=== PATIENT | female | born 1940 | race Caucasian/White ===

== ENCOUNTER 2019-07-04 14:42 | Observation (INO) ==
[2019-07-04] MEDS ORDERED: D5% in Water 1,000 ML IVC SCH (15:00)
[2019-07-04 15:13] LABS: Basophils % 0.3 %; Eosinophils # 0.1 K/mcL (0.0-0.6); Eosinophils % 1.5 %; Hematocrit 36.1 % (35.3-44.9); Hemoglobin 11.8 g/dL (11.5-15.4); Immature Granulocytes % 0.2 % (0-4); Lymphocytes # 3.9 K/mcL (0.6-4.6); Lymphocytes % 45.2 %; Mean Corpuscular HGB Conc 32.7 g/dL (31.6-35.5); Mean Corpuscular Hemoglobin 31.8 pg (28.0-33.3); Mean Corpuscular Volume 97.3 fL (83.0-100.0); Mean Platelet Volume 13.3 fL (9.4-12.4); Monocytes # 0.7 K/mcL (0.0-1.3); Monocytes % 8.5 %; Neutrophils # 3.8 K/mcL (1.6-8.9); Platelet Count 204 K/mcL (140-400); Red Blood Count 3.71 M/mcL (3.82-4.97); Red Cell Distribution Width 13.5 % (11.5-14.5); Segmented Neutrophils % 44.3 %; White Blood Count 8.7 K/mcL (4.3-11.1)
[2019-07-04 15:56] LABS: Bilirubin,Urine Negative (Negative); Blood,Urine Trace-lysed (Negative); Clarity,Urine Clear (Clear); Color,Urine Yellow (Yellow); Glucose,Urine (UA) 250 mg/dL (Normal); Ketones,Urine Negative (Negative); Leukocyte Esterase,Urine Small (Negative); Nitrite,Urine Negative (Negative); PH,Urine 5.5 pH Units (5.0-8.0); Protein,Urine Negative (Neg-Trace); Specific Gravity,Urine 1.025 (1.010-1.025); Urobilinogen,Urine Normal (Normal)
[2019-07-04 16:01] LABS: RBC,Urine 0-3 per hpf (0-3)
[2019-07-04 16:02] LABS: Bacteria,Urine None Seen per hpf (None-Few)
[2019-07-04 17:02] LABS: Albumin 3.8 g/dL (3.5-5.7); Albumin/Globulin Ratio 1.4 (1.1-2.2); Bilirubin,Total 0.2 mg/dL (0.3-1.0); Calcium 9.8 mg/dL (8.6-10.3); Globulin 2.8 g/dL (2.4-3.5); Potassium 3.9 mEq/L (3.5-5.1); Total Protein 6.6 g/dL (6.4-8.9)
[2019-07-04] MEDS ORDERED: Ondansetron 4 MG/2 ML VIAL IVP PRN (17:11)
[2019-07-04] MEDS ORDERED: Naloxone 0.4 MG/ML INJ IVP PRN (17:11)
[2019-07-04] MEDS ORDERED: Dextrose Gel 15 GM/37.5 ML TUBE PO PRN ×2 (17:30)
[2019-07-04] MEDS ORDERED: Haloperidol Lactate 5 MG/ML VIAL IVP PRN (17:30)
[2019-07-04] MEDS ORDERED: D5% in Water 1,000 ML IVC PRN (17:30)
[2019-07-04] MEDS ORDERED: *HR* Dextrose 50 % in Water (Syg) 50 ML SYRINGE IVP PRN (17:30)
[2019-07-04] MEDS: Insulin LISPRO 300 UNITS/3 ML VIAL SQ SCH (20:09)
[2019-07-04] MEDS: *HR* Heparin 5,000 UNIT/ML VIAL SQ SCH (20:11)
[2019-07-04] MEDS ORDERED: Insulin LISPRO 300 UNITS/3 ML VIAL SQ SCH (21:00)
[2019-07-04] MEDS ORDERED: Insulin DETEMIR 100 UNIT/ML X5UNITS SQ SCH (21:00)
[2019-07-05 01:00] LABS: Hematocrit 31.9 % (35.3-44.9); Hemoglobin 10.5 g/dL (11.5-15.4); Mean Corpuscular HGB Conc 32.9 g/dL (31.6-35.5); Mean Corpuscular Volume 97.3 fL (83.0-100.0); Mean Platelet Volume 13.3 fL (9.4-12.4); Platelet Count 166 K/mcL (140-400); Red Blood Count 3.28 M/mcL (3.82-4.97); Red Cell Distribution Width 13.3 % (11.5-14.5); White Blood Count 7.8 K/mcL (4.3-11.1)
[2019-07-05 01:23] LABS: Calcium 9.2 mg/dL (8.6-10.3); Potassium 3.3 mEq/L (3.5-5.1)
[2019-07-05] MEDS: *HR* Heparin 5,000 UNIT/ML VIAL SQ SCH (05:10)
[2019-07-05] MEDS ORDERED: D5% in Water 1,000 ML IVC SCH (07:00)
[2019-07-05] MEDS ORDERED: Sennosides/Docusate Sodium TABLET PO SCH (08:00)
[2019-07-05] MEDS: Insulin LISPRO 300 UNITS/3 ML VIAL SQ SCH (08:39)
[2019-07-05] MEDS ORDERED: Aspirin 81 MG TAB.CHEW PO SCH (09:00)
[2019-07-05] MEDS ORDERED: Cholecalciferol (D-3) 1,000 UNIT (25MCG) TABLET PO SCH (09:00)
[2019-07-05] MEDS ORDERED: (Omega-3/Dha/Epa/Fish Oil [Fish Oil 1,000 Mg Softgel] PO SCH (09:00)
[2019-07-05] MEDS ORDERED: Gabapentin 100 MG CAPSULE PO SCH (09:00)
[2019-07-05 10:43] VITALS: BP 100/36
[2019-07-05] MEDS ORDERED: *HR* HYDROcodone/Acet 5/325 mg TABLET PO SCH (14:00)
== END 2019-07-05 12:27 ==
LOC: 2ANU 14:42 → EMEROOARM 14:42 → SUATTDRO 17:11 → 2ANU 17:59
PROVIDERS: ADMIT Pharmacist; ATTEND Family Medicine

== ENCOUNTER 2021-02-26 19:32 | Inpatient (IN) ==
[2021-02-27 11:10] LABS: Amorphous Sediment,Urine Few per hpf (None-Few); Bacteria,Urine Few per hpf (None-Few); Bilirubin,Urine Negative (Negative); Blood,Urine Negative (Negative); Clarity,Urine Turbid (Clear); Color,Urine Light-Yellow (Yellow); Glucose,Urine (UA) Normal (Normal); Ketones,Urine Negative (Negative); Leukocyte Esterase,Urine Large (Negative); Mucus,Urine Few per lpf (None-Few); Nitrite,Urine Negative (Negative); Protein,Urine Trace mg/dL (Neg-Trace); Specific Gravity,Urine 1.009 (1.010-1.025); Squamous Epithelial Cell,Urine Many per hpf (None-Few); Urobilinogen,Urine Normal (Normal); WBC,Urine 50-100 per hpf (0-3)
[2021-02-27] MEDS: Norepinephrine 4 MG/254 ML IV.SOLN IVC SCH ×2 (11:15→21:41)
[2021-02-27 11:31] LABS: Calcium 8.5 mg/dL (8.6-10.3); Potassium 3.8 mEq/L (3.5-5.1)
[2021-02-27] MEDS ORDERED: Naloxone 0.4 MG/ML INJ IVP PRN (12:28)
[2021-02-27] MEDS ORDERED: Acetaminophen 325 MG TABLET PO PRN (12:38)
[2021-02-27] MEDS ORDERED: Bisacodyl 10 MG RECTAL SUPPOSITORY RC PRN (12:38)
[2021-02-27] MEDS ORDERED: D5% in Water 1,000 ML IVC PRN (12:40)
[2021-02-27] MEDS ORDERED: Dextrose Gel 15 GM/37.5 ML TUBE PO PRN ×2 (12:40)
[2021-02-27] MEDS ORDERED: *HR* Dextrose 50 % in Water (Syg) 50 ML SYRINGE IVP PRN (12:40)
[2021-02-27] MEDS: D5% in 0.45% NACL 1,000 ML IVC SCH ×2 (12:52→21:43)
[2021-02-27 15:41] LABS: Calcium 8.3 mg/dL (8.6-10.3); Potassium 3.7 mEq/L (3.5-5.1)
[2021-02-27] MEDS: Gabapentin 100 MG CAPSULE PO SCH ×2 (16:10→19:48)
[2021-02-27] MEDS: cefTRIAXone 1,000 MG in Water for inj. (sterile) 10 ML IVP SCH (16:12)
[2021-02-27] MEDS: *HR* Heparin 5,000 UNIT/ML VIAL SQ SCH (16:12)
[2021-02-27] MEDS: Sennosides/Docusate Sodium TABLET PO SCH (16:24)
[2021-02-27] MEDS: Insulin LISPRO 300 UNITS/3 ML VIAL SUBQ SCH (17:57)
[2021-02-27 20:27] LABS: Calcium 8.4 mg/dL (8.6-10.3); Potassium 4.3 mEq/L (3.5-5.1)
[2021-02-28] MEDS: Insulin LISPRO 300 UNITS/3 ML VIAL SUBQ SCH ×4 (02:36→17:56)
[2021-02-28 04:44] LABS: Hemoglobin 9.1 g/dL (11.5-15.4); Immature Platelets 14.3 % (1.1-6.1); Mean Corpuscular HGB Conc 31.4 g/dL (31.6-35.5); Mean Corpuscular Hemoglobin 31.1 pg (28.0-33.3); Mean Platelet Volume 14.2 fL (9.4-12.4); Red Blood Count 2.93 M/mcL (3.82-4.97); Red Cell Distribution Width 14.7 % (11.5-14.5); White Blood Count 7.7 K/mcL (4.3-11.1)
[2021-02-28 04:49] LABS: Albumin 3.2 g/dL (3.5-5.7); Albumin/Globulin Ratio 1.2 (1.1-2.2); Bilirubin,Total 0.3 mg/dL (0.3-1.0); Calcium 8.2 mg/dL (8.6-10.3); Globulin 2.6 g/dL (2.4-3.5); Potassium 4.1 mEq/L (3.5-5.1); Total Protein 5.8 g/dL (6.4-8.9)
[2021-02-28] MEDS: *HR* Heparin 5,000 UNIT/ML VIAL SQ SCH ×4 (05:43→20:47)
[2021-02-28] MEDS: Gabapentin 100 MG CAPSULE PO SCH ×3 (07:06→20:48)
[2021-02-28] MEDS: Aspirin 81 MG TAB.CHEW PO SCH (07:06)
[2021-02-28] MEDS: Sennosides/Docusate Sodium TABLET PO SCH ×2 (07:06→16:42)
[2021-02-28] MEDS: Cholecalciferol (D-3) 1,000 UNIT (25MCG) TABLET PO SCH (07:07)
[2021-02-28] MEDS: D5% in 0.45% NACL 1,000 ML IVC SCH (07:35)
[2021-02-28] MEDS: cefTRIAXone 1,000 MG in Water for inj. (sterile) 10 ML IVP SCH (09:43)
[2021-02-28] MEDS: D5% in Water 1,000 ML IVC SCH ×2 (09:46→18:53)
[2021-02-28] MEDS: Norepinephrine 4 MG/254 ML IV.SOLN IVC SCH ×3 (13:16→21:56)
[2021-02-28] MEDS ORDERED: *HR* Metoprolol 5 MG/5 ML VIAL IVP ONE (21:59)
[2021-03-01 00:40] LABS: Calcium 8.3 mg/dL (8.6-10.3); Potassium 3.7 mEq/L (3.5-5.1)
[2021-03-01] MEDS: Insulin LISPRO 300 UNITS/3 ML VIAL SUBQ SCH ×4 (00:41→17:43)
[2021-03-01] MEDS ORDERED: D5% in Water 1,000 ML IVC SCH ×3 (03:45→12:20)
[2021-03-01 04:57] LABS: Basophils % 0.2 %; Eosinophils # 0.1 K/mcL (0.0-0.6); Eosinophils % 0.8 %; Hematocrit 27.2 % (35.3-44.9); Hemoglobin 8.7 g/dL (11.5-15.4); Immature Granulocytes % 1.1 % (0-4); Immature Platelets 11.7 % (1.1-6.1); Lymphocytes # 1.6 K/mcL (0.6-4.6); Lymphocytes % 24.6 %; Mean Corpuscular Hemoglobin 31.3 pg (28.0-33.3); Mean Corpuscular Volume 97.8 fL (83.0-100.0); Mean Platelet Volume 13.8 fL (9.4-12.4); Monocytes # 0.9 K/mcL (0.0-1.3); Monocytes % 13.6 %; Neutrophils # 3.9 K/mcL (1.6-8.9); Platelet Count 149 K/mcL (140-400); Red Blood Count 2.78 M/mcL (3.82-4.97); Red Cell Distribution Width 14.6 % (11.5-14.5); Segmented Neutrophils % 59.7 %; White Blood Count 6.6 K/mcL (4.3-11.1)
[2021-03-01 05:12] LABS: Calcium 8.1 mg/dL (8.6-10.3); Magnesium 1.5 mg/dL (1.6-2.6); Potassium 3.4 mEq/L (3.5-5.1)
[2021-03-01] MEDS: *HR* Heparin 5,000 UNIT/ML VIAL SQ SCH ×3 (05:16→21:27)
[2021-03-01] MEDS: Sennosides/Docusate Sodium TABLET PO SCH (07:13)
[2021-03-01] MEDS: Gabapentin 100 MG CAPSULE PO SCH ×3 (07:13→21:26)
[2021-03-01] MEDS: Aspirin 81 MG TAB.CHEW PO SCH (07:13)
[2021-03-01] MEDS: cefTRIAXone 1,000 MG in Water for inj. (sterile) 10 ML IVP SCH (08:23)
[2021-03-01] MEDS: Cholecalciferol (D-3) 1,000 UNIT (25MCG) TABLET PO SCH (08:24)
[2021-03-01] MEDS ORDERED: Hydrocortisone Sodium Succ 100 MG/2 ML VIAL IVP SCH (10:57)
[2021-03-01 11:02] LABS: Calcium 7.9 mg/dL (8.6-10.3); Potassium 3.3 mEq/L (3.5-5.1)
[2021-03-01] MEDS ORDERED: Bisacodyl 10 MG RECTAL SUPPOSITORY RC PRN (12:20)
[2021-03-01] MEDS ORDERED: Acetaminophen 325 MG TABLET PO PRN (12:20)
[2021-03-01] MEDS ORDERED: Naloxone 0.4 MG/ML INJ IVP PRN (12:20)
[2021-03-01] MEDS ORDERED: Dextrose Gel 15 GM/37.5 ML TUBE PO PRN ×2 (12:20)
[2021-03-01] MEDS ORDERED: *HR* Dextrose 50 % in Water (Syg) 50 ML SYRINGE IVP PRN (12:20)
[2021-03-01] MEDS ORDERED: D5% in Water 1,000 ML IVC PRN (12:20)
[2021-03-01] MEDS: Hydrocortisone Sodium Succ 100 MG/2 ML VIAL IVP SCH (16:39)
[2021-03-01] MEDS ORDERED: Sennosides/Docusate Sodium TABLET PO SCH (17:00)
[2021-03-01 22:56] LABS: BUN/Creatinine Ratio 23 (6-26); Blood Urea Nitrogen 23 mg/dL (8-23); Calcium 8.1 mg/dL (8.6-10.3); Carbon Dioxide 19 mEq/L (23-29); Chloride 117 mEq/L (98-107); Glucose 220 mg/dL (70-105); Osmolality,Calculated 308 (280-300); Potassium 3.5 mEq/L (3.5-5.1); Sodium 144 mEq/L (136-145); eGFR For African Americans > 60 (> 60); eGFR For Non-African Americans 53 (> 60)
[2021-03-02] MEDS: Hydrocortisone Sodium Succ 100 MG/2 ML VIAL IVP SCH ×2 (01:07→07:40)
[2021-03-02] MEDS: Insulin LISPRO 300 UNITS/3 ML VIAL SUBQ SCH ×2 (01:07→06:21)
[2021-03-02 04:39] LABS: Hematocrit 26.3 % (35.3-44.9); Hemoglobin 8.8 g/dL (11.5-15.4); Mean Corpuscular HGB Conc 33.5 g/dL (31.6-35.5); Mean Corpuscular Hemoglobin 32.1 pg (28.0-33.3); Mean Platelet Volume 13.5 fL (9.4-12.4); Platelet Count 140 K/mcL (140-400); Red Blood Count 2.74 M/mcL (3.82-4.97); Red Cell Distribution Width 14.5 % (11.5-14.5); White Blood Count 8.1 K/mcL (4.3-11.1)
[2021-03-02 05:00] LABS: BUN/Creatinine Ratio 22 (6-26); Blood Urea Nitrogen 22 mg/dL (8-23); Calcium 8.2 mg/dL (8.6-10.3); Carbon Dioxide 20 mEq/L (23-29); Chloride 116 mEq/L (98-107); Glucose 180 mg/dL (70-105); Magnesium 1.7 mg/dL (1.6-2.6); Osmolality,Calculated 308 (280-300); Potassium 3.5 mEq/L (3.5-5.1); Sodium 145 mEq/L (136-145); eGFR For African Americans > 60 (> 60); eGFR For Non-African Americans 54 (> 60)
[2021-03-02] MEDS: *HR* Heparin 5,000 UNIT/ML VIAL SQ SCH (05:21)
[2021-03-02] MEDS ORDERED: Insulin LISPRO 300 UNITS/3 ML VIAL SUBQ SCH (07:30)
[2021-03-02] MEDS ORDERED: Cholecalciferol (D-3) 1,000 UNIT (25MCG) TABLET PO SCH (09:00)
[2021-03-02] MEDS ORDERED: cefTRIAXone 1,000 MG in Water for inj. (sterile) 10 ML IVP SCH (09:00)
[2021-03-02] MEDS ORDERED: Aspirin 81 MG TAB.CHEW PO SCH (09:00)
[2021-03-02 16:07] VITALS: BP 119/85; PULSE 91; TEMP 97.8; O2SAT 98
== END 2021-03-02 17:08 | DRG 871 ==
LOC: 2NNU → SUATTDRO 02-27 14:04
PROVIDERS: ADMIT Internal Medicine; ATTEND Internal Medicine